=== PATIENT | male | born 1960 | race Caucasian/White ===

== ENCOUNTER 2016-10-19 05:21 | Emergency (ER) | payer BC, OTHER ==
--- NOTE | 2016-10-19 06:00 | ERNOTE ---
Lower Extremity HPI - Narrative Date of Service: 10/19/16 - General Lower Extremities Pain: hip: bilateral - everything marked bilateral below was normal, leg: bilateral, knee: bilateral, thigh: bilateral, foot: right - pain dorsum right foot between the fourth and fifth metatarsals. Patient with 0.5 cm x 0.5 cm mobile mass at this area, ankle: bilateral, heel: bilateral, 1st toe : bilateral, 2nd toe: bilateral, 3rd toe: bilateral, 4th toe: bilateral, 5th toe : bilateral, other: bilateral Time Seen by Provider: 10/19/16 05:59 Source: patient Exam Limitations: no limitations - Immun/Allergies/Home Medications Immunizations: IMMUNIZATION HX Immunizations Up to Date Yes History of Influenza Vaccine No Allergies/Adverse Reactions: Allergies Allergy/AdvReac Type Severity Reaction Status Date / Time Sulfa (Sulfonamide Allergy Verified 10/19/16 05:31 Antibiotics) Home Medications: HOME MEDICATIONS Aspirin [Aspir-Low] 81 mg PO DAILY 10/19/16 [Last Taken Unknown] - History of Present Illness Narrative: This morning patient noted pain localized to dorsum right foot between fourth and fifth metatarsals. Has not noted area previously. This is not warm is not erythematous it is mobile. Above does not have palpable pulse. Patient with full range of motion of foot although dorsiflexion seems to bother somewhat. He frequently wears sandals but states these are not new. No reported injury. Date (Duration): 10/19/16 Time (Timing): 05:59 Occurred: this morning Location of Incident: other - not applicable as no trauma Method of Injury: Reports: other - no injury reported Reason for Fall: Reports: other - no fall occurred Modifying Factors - (Worsens): Reports: other - pressure over area of concern does cause discomfort Other Injuries: Reports: none Review of Systems - Review of Systems Constitutional: Present: no symptoms reported EYE: Present: no symptoms reported ENT: Present: no symptoms reported Respiratory: Present: no symptoms reported Cardiology: Present: no symptoms reported Gastrointestinal/Abdominal: Present: no symptoms reported Genitourinary: Present: no symptoms reported Musculoskeletal: Present: other - pain localized to dorsum right foot Skin: Present: no symptoms reported Neurological: Present: no symptoms reported Endocrine: Present: no symptoms reported Hematologic/Lymphatic: Present: no symptoms reported Psych: Present: no symptoms reported - Patient's Past Medical History Patient History - Medical: No pertinent hx, Other - no prior injuries to his right foot Patient History - Cardiac/Respiratory: Other Patient History - Cancer: No Hx of Cancer Patient History - Surgical Procedures: T & A, Other Patient History - Other: None - Social History Living Situations: spouse Abuse History: No History of abuse Psych History: No pertinent hx Smoking Status: Never smoker Do you dip or chew tobacco: No Alcohol Use: occasionally Drug Use: none - Immunizations Immunizations Up to Date: Yes History of Influenza Vaccine: No Physical Exam - Physical Exam General Appearance: Present: wd/wn, alert, no apparent distress Ears, Nose, Throat: Present: normal ENT inspection, normal pharynx Neck: Present: normal inspection, nontender Respiratory: Present: no respiratory distress, normal breath sounds, no accessory muscle use, chest nontender, lungs clear Cardiovascular/Chest: Present: regular rate, rhythm, no murmur, normal peripheral pulses Peripheral Pulses: N=norm/S=strong/W=weak/B=bound/A=absent: Dorsalis-pedis (R): Normal, Dorsalis-pedis (L): Normal Gastrointestinal/Abdominal: Present: normal bowel sounds, nontender, nondistended, soft, no organomegaly Rectal Exam: Present: deferred Male Genitals Exam: Present: deferred Back Exam: Present: normal inspection, normal range of motion, no CVA tenderness , no vertebral tenderness Extremity Exam: Present: no edema, other - patient went tenderness localized to right foot dorsum between base fourth and fifth toes. Area approximately 0.5 cm x 0.5 cm mobile and mildly tender to palpation. There is no erythema and there is no ecchymosis there is swelling. Does not appear to be localized to tendon. No pulse present over mass. Neurological Exam: Present: alert, oriented, normal mood/affect, no motor/ sensory deficits Skin Exam: Present: normal color, warm/dry Lymphatic Exam: Present: no adenopathy ED Progress - Vital Signs Patient's Vital Signs:: I have reviewed the patient's vital signs. Vital Signs: Vital Signs 10/19/16 05:25 Temperature 36.3 C L Pulse Rate 78 Respiratory 16 Rate Blood Pressure 135/89 O2 Sat by Pulse 96 Oximetry - X-Ray X-Ray #1 X-Ray: foot - x-ray right foot does not show any acute abnormality. No bony structure noted over site of pain. Above is a read by myself. Interpretation: Interp. by me - Progress/Reassessment Chief Complaint: Foot Injury/Pain Departure Clinical Impression: Cyst - Departure Disposition: Home self-care Condition: Good Additional Instructions: Your right foot best evaluated by either orthopedic surgeon or correctional officer. Would recommend utilizing shoes that greatly started moderate discomfort to area. He may use ibuprofen 800 mg with food every 8 hours as needed for any pain associated with above Referrals: Alley Zafar, WINDROWER OPERATOR [Primary Care Provider] -
--- OUTSIDE RECORDS SUMMARY | 2016-10-19 06:13 | XMS REPORT | Continuity of Care Document ---
:1960 Demographics Phone Unavailable Preferred Language Unknown Marital Status Unknown Worship Affiliation Unknown Race Unknown Ethnic Group Unknown Author Organization [facility] ([facility]) [place] [address] Phone [phone] Care Team Providers Name Role Phone Unavailable Primary Care Provider Unavailable Source Comments This disclosure is being made pursuant to the Care Everywhere program, applicable federal and state laws, and may not contain all informaitonavailable regarding this patient.[facility] ([facility]) Active Allergies and Adverse Reactions Not on File Current Medications Not on file Active Problems Not on file Social History Tobacco Use Types Packs/Day Years Used Date Never Assessed Plan of Care Health Maintenance Due Date Last Done Comments HCV Screening 1960 Hepatitis B Vaccine (1 of 3 - Primary Series) 1960 Tdap Vaccine 07/28/1970 Lipid Disorder Screening 07/28/1977 MMR Vaccine 07/28/1977 Td Vaccine 07/28/1977 Colonoscopy 07/28/2009 Prostate Cancer Screening 07/28/2009 Influenza Vaccine: Seasonal (#1) 12/23/2015 Results from Last 3 Months Not on file
[2016-10-19 06:32] VITALS: BP 130/77
== END 2016-10-19 06:20 | disposition home or self-care (01) ==
LOC: ER 05:21
DX: R22.41 Localized swelling, mass and lump, right lower limb (principal)

== ENCOUNTER 2017-02-02 07:10 | Day surgery (SDC) | payer BC ==
[~2017-02-02 07:10] MED LIST: RINGER'S SOLUTION,LACTATED 1,000 ML IV PRN
[2017-02-02] MEDS ORDERED: BUPIVACAINE HCL/EPINEPHRINE 50 ML VIAL IJ ONE ×2 (08:35)
--- NOTE | 2017-02-02 09:33 | OR ---
Operative Report - Dictated Report Narrative: Date: 02/02/2017 Preop dx: lipoma of trunk x 2 Postop dx: 5x3 cm lipoma left costal margin. 5x3 cm intramuscular angiolipoma right flank. Procedure: Excision soft tissue tumor x 2 as above. Surgeon: Jordon Dai MD Indication: Painful masses as above Description: Pt was placed in the supine position and prepped and draped in a sterile fashion. A field block was made around each respective lesion. Incision was carried out over the costal margin tumor and the mass was enucleared from a pseudocapsule. The incision was closed with interrupted 4-0 vicryl and sealed with dermabond. The excision was carried out on the right flank in a similar fashion. This lesion was much deeper and had a lobule or chamber that penetrated the fascia. This was closed in a similar fashion. The patient tolerated the procedure well without apparent complications and was discharged from the operating room in stable condition.
[2017-02-02 10:03] VITALS: BP 112/74
== END 2017-02-02 07:11 | disposition home or self-care (01) ==
LOC: AMB 07:10
PROVIDERS: ATTEND Specialist
PROC: 0JB80ZZ Excision of Abdomen Subcutaneous Tissue and Fascia, Open Approach (ICD-10-PCS; 2017-02-02)
PROC: 0JB60ZX Excision of Chest Subcutaneous Tissue and Fascia, Open Approach, Diagnostic (ICD-10-PCS; principal; 2017-02-02 08:00)
DX: D17.1 Benign lipomatous neoplasm of skin and subcutaneous tissue of trunk (principal); E78.5 Hyperlipidemia, unspecified; K21.9 Gastro-esophageal reflux disease without esophagitis; F17.200 Nicotine dependence, unspecified, uncomplicated; Z68.31 Body mass index [BMI] 31.0-31.9, adult

== ENCOUNTER 2017-03-05 06:57 | Day surgery (SDC) | payer BC ==
[2017-03-05] MEDS ORDERED: RINGER'S SOLUTION,LACTATED 1,000 ML IV ONE (07:50)
--- NOTE | 2017-03-05 09:30 | OR ---
Operative Report - Dictated Report Narrative: Date: 03/05/2017 Preop dx: Rectal bleeding, screen for colon CA Postop dx: Pedunculated polyp at 20 cm Procedure: Total colonoscopy Staff Surgeon: Jordon Dai MD Anesthesia: MAC per GROUND TRANSPORTATION OPERATOR EBL: Minimal Specimen: polyp at 20 cm Description: After informed consent and appropriate sedation the patient was placed in the left lateral decubitus position. A flexible fiberoptic video colonoscope was introduced and advanced under direct vision without difficulty to the cecum. The usual landmarks were identified. Preparation was excellent and excellent views were obtained. The findings were of a normal cecum, ascending colon, hepatic flexure, transverse colon, splenic flexure, descending colon, sigmoid colon. A pedunculated polyp was noted at 20 cm in the rectum. This was excised with a polypectomy snare and electrocautery. It was grasped with a 3-prong grasper and removed. The polyp was submitted for pathologic examination. The scope was reintroduced and the rectum was inspected. Hemostasis was adequate. A retroflex view was normal. The mucosal color vasculature and texture were normal throughout except for the rectum where a few ectatic vessels were noted. The patient tolerated the procedure well without apparent complication and was discharged from the endoscopy suite in stable condition.
[2017-03-05 10:46] VITALS: BP 126/91
== END 2017-03-05 06:58 | disposition home or self-care (01) ==
LOC: AMB 06:57
PROVIDERS: ATTEND Specialist
PROC: 0DBE8ZX Excision of Large Intestine, Via Natural or Artificial Opening Endoscopic, Diagnostic (ICD-10-PCS; principal; 2017-03-05 08:00)
DX: Z12.11 Encounter for screening for malignant neoplasm of colon (principal); D37.4 Neoplasm of uncertain behavior of colon; K21.9 Gastro-esophageal reflux disease without esophagitis; E78.5 Hyperlipidemia, unspecified; Z68.30 Body mass index [BMI] 30.0-30.9, adult